=== PATIENT | female | born 1980 | race Two or more races ===

== ENCOUNTER 2025-02-09 14:40 | Emergency (ER) | payer SELFPAY ==
[~2025-02-09] VITALS: Ht 160 cm; Wt 54.4 kg
[2025-02-09] MEDS: IV NS 0.9% 1,000 ML BAG IV ONE (15:05)
[2025-02-09 15:11] LABS: PLATELET COUNT (AUTO) 314 K/uL (150-450); RED BLOOD CELL COUNT(AUTO) 4.58 MIL/uL (4.0-5.2); RED CELL DISTRIBUTION WIDTH 15.4 % (11.5-15.0); WHITE BLOOD COUNT (AUTO) 7.7 K/uL (4.3-11.0)
[2025-02-09 15:17] LABS: CALCIUM, SERUM 8.0 mg/dL (8.5-10.1); CREATININE 0.7 mg/dL (0.6-1.3); SODIUM SERUM 139 mmol/L (136-145); UREA NITROGEN, BLOOD 10 mg/dL (7-18)
[2025-02-09 15:25] LABS: ALCOHOL, BLOOD 545 mg/dL (0-10); ASPARTATE AMINOTRANSFERASE 52 U/L (15-37); TOTAL PROTEIN, SERUM 8.2 g/dL (6.4-8.2)
[2025-02-09 15:41] LABS: APPEARANCE,URINE CLEAR (CLEAR); BLOOD, URINE Trace-lysed Ery/uL (NEGATIVE); LEUKOCYTE ESTERASE ,URINE Negative (NEGATIVE); NITRITE, URINE NEGATIVE (NEGATIVE); UGLUCOSE 100 MG/DL mg/dL (NEGATIVE)
[2025-02-09 15:47] LABS: ADD URINE CULTURE NO; HYALINE CASTS, URINE Few /LPF (None Seen); SQUAMOUS EPITHELIAL CELL,UR 0-2 /HPF (None Seen)
[2025-02-09 16:03] LABS: AMPHETAMINE, URINE NEGATIVE (NEGATIVE); BARBITURATE, URINE NEGATIVE (NEGATIVE); BENZODIAZEPINE, URINE NEGATIVE (NEGATIVE); CANNABINOID, URINE NEGATIVE (NEGATIVE); COCCAINE, URINE NEGATIVE (NEGATIVE); OPIATE, URINE NEGATIVE (NEGATIVE)
[2025-02-09] MEDS ORDERED: OLANZAPINE 10 MG VIAL IM ONE (20:57)
[2025-02-09] MEDS: OLANZAPINE 10 MG VIAL IM ONE (21:00)
[2025-02-10 01:54] VITALS: BP 110/80; TEMP 98; O2SAT 95
== END 2025-02-10 01:55 | disposition home or self-care (01) ==
LOC: ER 14:49
DX: F10.129 Alcohol abuse with intoxication, unspecified (principal); R51.9 Headache, unspecified; R10.20 Pelvic and perineal pain unspecified side; Z79.899 Other long term (current) drug therapy; Y90.8 Blood alcohol level of 240 mg/100 ml or more
CPT/HCPCS: 99285; 96372; 96360; 93005; 70450; 85025; 80048; 80076; 81001; 36415; 84702; 80143; 80320; 80307; 98960; J7030; J3490; G0480

== ENCOUNTER 2025-02-10 03:27 | Emergency (ER) | payer SELFPAY | END 2025-02-10 06:37 | disposition left against medical advice (07) | LOC: ER 03:30 | DX: Z53.21 Procedure and treatment not carried out due to patient leaving prior to being seen by health care provider (principal) ==